=== PATIENT | male | born 1960 | race American Indian/Alaskan Native ===

== ENCOUNTER 2017-08-02 09:15 | Inpatient (IN) | payer MEDICARE ==
[2017-08-02 09:23] VITALS: BMI 37.2
[2017-08-02] MEDS ORDERED: EPINEPHrine 1 mg/ml (1:1000) Inj ONE (13:05)
[2017-08-02] MEDS ORDERED: Bacitracin Ointment 30 GM TUBE ONE (13:06)
[2017-08-02] MEDS ORDERED: Bupivacaine 0.5% Inj(30mL) ONE (13:06)
[2017-08-02] MEDS ORDERED: Absorbable Gelatin Sponge Size 100 ONE (13:06)
[2017-08-02] MEDS ORDERED: Thrombin Topical 5,000 IU Spray Kit ONE (13:06)
[2017-08-02] MEDS ORDERED: Morphine 1 mg/ml preservative-free Inj(Duramorph) ONE ×2 (13:39→14:40)
[2017-08-02] MEDS ORDERED: Propofol 10 mg/ml Inj (20 ML) ONE (13:49)
[2017-08-02] MEDS ORDERED: Midazolam 2 MG/2 ML VIAL ONE (13:49)
[2017-08-02] MEDS ORDERED: ePHEDrine 50 mg/ml Inj ONE (13:49)
[2017-08-02] MEDS ORDERED: Succinylcholine 200 mg/10 ml Inj IV ONE (13:50)
[2017-08-02] MEDS ORDERED: Rocuronium 10 mg/ml (5 ml) ONE (13:50)
[2017-08-02] MEDS ORDERED: Phenylephrine 10 mg/ml Inj ONE (13:50)
[2017-08-02] MEDS ORDERED: Lactated Ringer's 1,000 ML IV ONE ×3 (14:02→17:13)
[2017-08-02] MEDS ORDERED: Sodium Chloride 0.9% 1,000 ML IV ONE (14:20)
[2017-08-02] MEDS ORDERED: Desflurane Inhalation Anesthetic Liq (240 ml) ONE (16:29)
--- NOTE | 2017-08-02 17:20 | PCM.SURG1 ---
Surgeon's Initial Post Op Note - Surgeon's Notes Surgeon: Sg Alonzo MD [employer] Paralegal: Dillon Crawford PA-C Type of Anesthesia: General Endo Pre-Operative Diagnosis: Right hip severe osteoarthritis Operative Findings: see op report Post-Operative Diagnosis: same as pre-op dx Operation Performed: Right robotic assisted total hip replacement Specimen/Specimens Removed: right hip femoral head and soft tissue Estimated Blood Loss: EBL {In ML}: 200 Date of Surgery/Procedure: 08/02/17 Time of Surgery/Procedure: 15:00
[2017-08-02] MEDS ORDERED: HYDROmorphone 0.5 mg/0.5 ml ISec ONE (17:21)
[2017-08-02] MEDS: HYDROmorphone 0.5 mg/0.5 ml ISec IVP PRN ×4 (17:25→19:10)
[2017-08-02] MEDS ORDERED: Oxycodone/Acetaminophen 5/325 mg Tab PO PRN (17:28)
--- NOTE | 2017-08-02 18:56 | RAD ---
PROCEDURE: Pelvis right hip HISTORY: s/p RTHR COMPARISON: No prior studies. TECHNIQUE: Standard protocol for this study/examination. FINDINGS: Status post right JOLEEN. Unremarkable components of the prosthesis is visualized. No evidence of loosening. Negative study for subluxation or dislocation. Unremarkable pelvic ring and right hemipelvis osseous structures is visualized. IMPRESSION: No acute findings related to/accounting for the clinical presentation.
[2017-08-02] MEDS: oxyCODONE 20 mg ER Tab (oxyCONTIN) PO SCH (21:24)
[2017-08-02] MEDS ORDERED: ceFAZolin 1 GM in Sodium Chloride 0.9% 100 ML IVPB ONE (23:00)
[2017-08-03] MEDS ORDERED: ceFAZolin 1 GM in Sodium Chloride 0.9% 100 ML IVPB ONE (07:00)
[2017-08-03 07:11] LABS: BASO % 0.5 % (0.0-2.0); EOS # 0.3 K/uL (0.0-0.7); EOS % 3.9 % (0.0-4.0); HEMATOCRIT 33.9 % (35.0-51.0); LYMPH # 1.3 K/uL (1.0-4.3); LYMPH % 15.9 % (20.0-40.0); MEAN CELL VOLUME 89.2 fl (80.0-94.0); MEAN CORPUSCULAR HEMOGLOBIN 29.3 pg (27.0-31.0); MEAN CORPUSCULAR HGB CONC 32.9 g/dL (33.0-37.0); MEAN PLATELET VOLUME 8.7 fl (7.2-11.7); MONO # 0.8 K/uL (0.0-0.8); MONO % 10.1 % (0.0-10.0); NEUT # 5.5 K/uL (1.8-7.0); NEUT % 69.6 % (50.0-75.0); RED CELL DISTRIBUTION WIDTH 13.6 % (11.5-14.5); WHITE BLOOD COUNT 7.9 K/uL (4.8-10.8)
[2017-08-03 07:19] LABS: BLOOD UREA NITROGEN 12 mg/dl (9-20); CALCIUM 8.3 mg/dL (8.4-10.2); CARBON DIOXIDE 23 mmol/L (22-30); CHLORIDE 105 mmol/L (98-107); GFR AFRICAN-AMERICAN > 60; GLUCOSE,RANDOM 93 mg/dL (75-110); SODIUM 138 mmol/l (132-148)
--- NOTE | 2017-08-03 09:04 | CP.PCM.PN ---
Subjective - Date & Time of Evaluation Date of Evaluation: 08/03/17 Time of Evaluation: 08:15 - Subjective Subjective: S/P Right robotic assisted total hip replacement POD#1 Pt seen and examined sitting in chair, comfortable, NAD Pt c/o mild right hip pain Pt denies any SOB, chest pain, N/V/D, numbness/tingling RLE Objective - Vital Signs/Intake and Output Vital Signs (last 24 hours): Temp Pulse Resp BP Pulse Ox 99.4 F 74 20 167/83 H 97 08/03/17 08:03 08/03/17 08:03 08/03/17 08:03 08/03/17 08:03 08/03/17 08:03 - Medications Medications: Current Medications Acetaminophen (Tylenol 325mg Tab) 325 mg PO Q4 PRN PRN Reason: pain1-3 Amlodipine Besylate (Norvasc) 10 mg PO DAILY [facility] Aspirin (Aspirin) 325 mg PO BID [facility] Celecoxib (Celebrex) 200 mg PO Q12 [facility] Last Admin: 08/02/17 21:23 Dose: 200 mg Docusate Sodium (Colace) 100 mg PO TID [facility] Hydromorphone HCl (Dilaudid) 0.5 mg IVP Q5M PRN PRN Reason: Pain, moderate (4-7) Last Admin: 08/02/17 19:10 Dose: 0.5 mg Ketorolac Tromethamine (Toradol) 15 mg IM Q8 [facility] Stop: 08/05/17 01:00 Last Admin: 08/03/17 00:40 Dose: 15 mg Lactic Acid (Lac-Hydrin 12% Lotion (225 G)) 1 applic TOP TID PRN PRN Reason: Itching / Pruritus Metoprolol Tartrate (Lopressor) 50 mg PO Q12 [facility] Last Admin: 08/02/17 21:23 Dose: 50 mg Ondansetron HCl (Zofran Odt) 4 mg PO Q6 PRN PRN Reason: Nausea/Vomiting Oxycodone HCl (Oxycontin Extended Release Tab) 20 mg PO Q12 [facility] Stop: 08/16/17 23:59 Last Admin: 08/02/17 21:24 Dose: 20 mg Oxycodone/Acetaminophen (Percocet 5/325 Mg Tab) 1 tab PO Q4 PRN PRN Reason: pain4-6 Stop: 08/05/17 17:29 Pantoprazole Sodium (Protonix Ec Tab) 40 mg PO DAILY [facility] Valsartan (Diovan) 320 mg PO DAILY [facility] - Labs Labs: 08/03/17 06:15 08/03/17 06:15 - Constitutional Appears: Well, No Acute Distress - Respiratory Exam Respiratory Exam: Clear to Ausculation Bilateral, NORMAL BREATHING PATTERN - Cardiovascular Exam Cardiovascular Exam: REGULAR RHYTHM, RRR - Extremities Exam Additional comments: RLE: Hip dressing C/D/I Calves soft and nontender b/l N/V intact distally Normal ROM at ankle Distal pulses wnl Assessment and Plan - Assessment and Plan (Free Text) Assessment: 57 yo M s/p Right robotic assisted total hip replacement POD#1 Plan: 57 yo M s/p Right robotic assisted total hip replacement POD#1 Pain Control DVT ppx- aspirin 325mg bid PT/OT WBAT RLE Incentive Spirometer F/U labs Discussed with Dr. Alonzo
[2017-08-03] MEDS: oxyCODONE 20 mg ER Tab (oxyCONTIN) PO SCH ×2 (09:44→21:28)
[2017-08-03] MEDS: Pantoprazole 40 mg EC Tab PO SCH (09:47)
--- NOTE | 2017-08-03 20:02 | HP ---
HISTORY OF PRESENT ILLNESS: This is a 57 years old -[place] male with history of multiple medical problems who was admitted postoperative. The patient underwent right total hip replacement. The patient denied to have any shortness of breath. No chest pain. REVIEW OF SYSTEMS: Other review of systems is negative. ALLERGIES: NO KNOWN ALLERGIES. HOME MEDICATIONS: Mobic 15 mg daily, Exforge 10/320 once a day, metoprolol 50 mg twice a day, omeprazole 40 mg daily. PAST MEDICAL HISTORY: Hypertension, gastroesophageal reflux disease, osteoarthritis. SOCIAL HISTORY: No history of smoking, ETOH, or substance abuse. FAMILY HISTORY: Noncontributory. PHYSICAL EXAMINATION: GENERAL: The patient is in bed, comfortable, not in any cardiopulmonary distress. VITAL SIGNS: Blood pressure 167/83, temperature 99.4, respiratory rate 20, and pulse 74. HEENT: Pupils equal, reactive to light. Normal-appearing mucosa of the conjunctivae, oropharynx and nasal membrane mucosa. NECK: Supple. No JVD. No carotid bruit. No lymph node. No thyromegaly. CHEST AND LUNGS: Bilateral symmetrical expansion. Good air exchange. No rales, no rhonchi. CARDIOVASCULAR SYSTEM: PMI not localized. S1, S2. No additional sounds. ABDOMEN: Normoactive bowel sounds. No tenderness. No organomegaly. No masses. EXTREMITIES: No cyanosis, no clubbing, no edema. HATCHERY HELPER: Alert, awake, and oriented x2. No neurological deficit could be appreciated. ASSESSMENT: 1. Status post right total hip replacement. 2. Hypertension. 3. Osteoarthritis. Plan : Physical therapy , evaluation for TAMIKO , Resume patient's home medication. PLAN: Resume patient's home medications. Denise Dean MD [facility]
[2017-08-04 00:24] VITALS: RESP 20; O2SAT 98
[2017-08-04 05:51] LABS: BASO # 0.1 K/uL (0.0-0.2); BASO % 0.6 % (0.0-2.0); EOS # 0.4 K/uL (0.0-0.7); EOS % 4.7 % (0.0-4.0); HEMATOCRIT 30.7 % (35.0-51.0); LYMPH # 1.5 K/uL (1.0-4.3); LYMPH % 16.6 % (20.0-40.0); MEAN CELL VOLUME 88.1 fl (80.0-94.0); MEAN CORPUSCULAR HEMOGLOBIN 29.2 pg (27.0-31.0); MEAN CORPUSCULAR HGB CONC 33.1 g/dL (33.0-37.0); MONO # 0.9 K/uL (0.0-0.8); MONO % 10.2 % (0.0-10.0); NEUT % 67.9 % (50.0-75.0); RED CELL DISTRIBUTION WIDTH 13.4 % (11.5-14.5); WHITE BLOOD COUNT 8.8 K/uL (4.8-10.8)
[2017-08-04 05:57] LABS: BLOOD UREA NITROGEN 14 mg/dl (9-20); CALCIUM 8.1 mg/dL (8.4-10.2); CARBON DIOXIDE 21 mmol/L (22-30); CHLORIDE 105 mmol/L (98-107); GFR AFRICAN-AMERICAN > 60; GLUCOSE,RANDOM 97 mg/dL (75-110); POTASSIUM 3.8 MMOL/L (3.6-5.0); SODIUM 135 mmol/l (132-148)
[2017-08-04 08:05] VITALS: BP 120/70; PULSE 63; TEMP 98.3
[2017-08-04] MEDS: oxyCODONE 20 mg ER Tab (oxyCONTIN) PO SCH (09:22)
[2017-08-04] MEDS: Pantoprazole 40 mg EC Tab PO SCH (09:31)
--- NOTE | 2017-08-05 06:06 | DS ---
REASON FOR ADMISSION: This is a 57-year-old male who underwent right hip replacement and was admitted postoperatively. COURSE OF HOSPITALIZATION: The patient was admitted to medical floor and he was started on his home medications. The patient was started on physical therapy as per orthopedic recommendations. The patient did well and he was discharged to transitional care unit at the [facility] for physical therapy and occupational therapy as well as to continue his medications. FINAL DIAGNOSES: 1. Right total hip replacement. 2. Hypertension. 3. . [facility] MD Jermaine
--- NOTE | 2017-08-12 09:13 | OP ---
PROCEDURE DATE: 08/02/2017 PREOPERATIVE DIAGNOSIS: Right hip osteoarthritis. POSTOPERATIVE DIAGNOSIS: Right hip osteoarthritis. PROCEDURE: Right total hip replacement. IMPLANTS SIZE: Mirian 54 mm cup, size 4 stem with high offset, 36 mm head with -5 neck length, 25 mm screw. SURGEON: Sg Alonzo M.D. BRAIDING MACHINE TENDER: Dillon Crawford PA-C TYPE OF ANESTHESIA: General. ESTIMATED BLOOD LOSS: 200 mL. COMPLICATIONS: None. HISTORY: The patient with prolonged history of right hip pain progressively getting worse despite extensive conservative management, which included activity modification, injections, anti-inflammatory modification and physical therapy. X-rays had revealed advanced arthritis. Patient was indicated for total right hip replacement due to continued pain and limited mobility. I had a detailed discussion with the patient in the office explaining the nature of the surgery, alternatives of surgery, risks and benefits, rehabilitation protocol and surgical markings. Risks of surgery include but not limited to continued pain, lack of motion, infection, vascular injury, DVT / PE, nerve injury including peroneal nerve dysfunction, reflex sympathetic dystrophy, compartment syndrome, unforeseen medical and/or anesthesia complications, limb loss, and even . The patient expressed an understanding of the risks and possible benefits of the procedure, and is also aware of the alternatives to surgery. PROCEDURE: Sg Alonzo MD
--- NOTE | 2017-08-15 09:59 | OP ---
DATE OF OPERATION: 08/02/2017 PREOPERATIVE DIAGNOSIS: Right hip osteoarthritis. POSTOPERATIVE DIAGNOSIS: Right hip osteoarthritis. PROCEDURE: Right total hip replacement. IMPLANTS SIZE: [place] 54 mm cup, size 4 stem with high offset, 36 mm head with -5 neck length, 25 mm screw. SURGEON: Sg Alonzo MD COMPLEX CASE MANAGER: Dillon Crawford PA-C ANESTHESIA TYPE: General. ESTIMATED BLOOD LOSS: 200 mL. COMPLICATIONS: None. HISTORY: Patient with long standing history of right hip pain refractory of conservative management. X-ray had shown significant loss of joint space. After the failure of extensive conservative management, I had offered the patient the treatment option of total hip replacement. I reviewed the risk and benefits of the surgery with the patient in detail. The risks include, but not limited to bleeding, infection, nerve vessel damage, continuous pain, blood loss, instability, dislocation, iatrogenic fracture, blood clots, need for further surgery, and even . The patient fully understood the risks and benefits and opted to proceed. Patient underwent necessary preoperative medical workup and once medically cleared, was scheduled for the procedure. DESCRIPTION OF PROCEDURE: On the day of the surgery, the patient was admitted to preoperative holding area. A laterality sheet was completed, confirming correct operative site. An informed consent was signed from the patient and the correct operative hip was marked. Patient was brought into the operating room table. He underwent general anesthesia. Afterwards, the patient was placed on the operating room table in lateral decubitus position. All the bony prominences were well padded and an axillary roll was also placed. The hip was draped and prepped in the standard sterile manner. Timeout was completed, confirming correct operative site. We proceeded with Navigation assisted total hip replacement. Two pins were placed in the iliac crest to attach the antenna. Additional checkpoint was placed on the greater trochanter and on top of the acetabular roof. We utilized a standard postero-lateral approach. Using a #10 blade, a skin incision was made. The soft tissue dissection was taken down until the IT band fascia was identified incised along it's fibers. The short external rotators were exposed and excised with the capsule. It was tagged wit heavy sutures preserved for a later repair. Afterwards, the hip was dislocated and proposed neck cut was made. The Acetabulum was exposed using standard retractors. The remnant of torn labrum was excised along with pulvinar. The acetabulum was reamed using motorized reamers to the size that provide adequate depth and coverage. Next, 54 cup was securely fixed in to the acetabular socket in appropriate version and inclination. A polyethylene liner was secured in to the acetabular cup. The femoral canal was exposed using standard retractors. Using the box chisel, lateral femoral neck was removed. Femoral canal was broached up to size 4 broach, which provide a secure fit and adequate fill of femoral canal. A High-offset trial neck was secured onto the broach. Different trial heads with variable neck lengths were secured onto the trial neck. The hip was reduced and taken through extensive range of motion to test stability, soft tissue tensioning and leg length. It was noted the a 36 mm head with -5 neck length provide adequate stability, soft tissue tensioning and length. Next, size 4 stem with High-offset was securely fixed into the femoral canal. Then, 36 mm head with -5 neck length was secured onto the neck of femoral stem. Hip was reduced and taken through final range of motion to assess for stability, soft tissue tensioning and leg length which was found to be satisfactory. Finally, the wound was copiously irrigated using pulse lavage solution. All loose bodies were removed. The short external rotators were repaired to greater trochanter using drill holes and heavy sutures. IT band fascia was tightly closed using heavy sutures and rest the wound was closed standard manner. Sterile dressing was applied. Patient was transferred to stretcher. Post-op instructions included posterior hip precautions. During this procedure, I was assisted by Dillon Crawford PA-C, who assisted in positioning the patient on the operating room table as well as transferring the patient from the operating room table to the recovery room stretcher. In addition, Dillon Crawford PA-C, assisted me during the actual operative procedure by positioning, protecting critical neurovascular structures, exposure of the joint, and proper positioning of the implants. The presence of Dillon Crawford PA-C, as my operative assistant news director was medically necessary to ensure the utmost safety of the patient in the pre, intra-, and post-operative periods. Due to the patient's morbid obesity, this procedure was more difficult than a standard knee arthroscopy. This required extra time during prepping and draping, as well as an extended operative time. The length of the case was prolonged due to these factors by 50%. Sg Alonzo MD
== END 2017-08-04 16:18 | DRG 470 ==
LOC: H.OPSURG 09:15 → H.MEDSURG1 17:49 → H.OPSURG 19:40
PROVIDERS: ADMIT Internal Medicine; ATTEND Internal Medicine
PROC: 0SR90JZ Replacement of Right Hip Joint with Synthetic Substitute, Open Approach (ICD-10-PCS; principal; 2017-08-02 13:30)
DX: M16.11 Unilateral primary osteoarthritis, right hip (principal); I10 Essential (primary) hypertension; K21.9 Gastro-esophageal reflux disease without esophagitis; Z79.899 Other long term (current) drug therapy; M25.551 Pain in right hip

== ENCOUNTER 2017-08-04 13:30 | Inpatient (IN) | payer OTHER ==
[2017-08-04] MEDS: oxyCODONE 20 mg ER Tab (oxyCONTIN) PO SCH (20:51)
[2017-08-05] MEDS: Oxycodone/Acetaminophen 5/325 mg Tab PO PRN ×4 (02:08→17:30)
[2017-08-05] MEDS: oxyCODONE 20 mg ER Tab (oxyCONTIN) PO SCH ×2 (08:53→22:38)
--- NOTE | 2017-08-05 08:53 | CP.PCM.PN ---
Subjective - Date & Time of Evaluation Date of Evaluation: 08/05/17 Time of Evaluation: 08:00 - Subjective Subjective: S/P Right robotic assisted total hip replacement POD#3 Pt seen and examined at bedside, comfortable in bed Pt denies any right hip pain, well controlled with pain meds Pt denies any SOB, chest pain, N/V/D, numbness/tingling RLE Pt states he has had a BM Objective - Vital Signs/Intake and Output Vital Signs (last 24 hours): Temp Pulse Resp BP Pulse Ox 98.8 F 85 20 123/79 100 08/05/17 08:18 08/05/17 08:18 08/05/17 08:18 08/05/17 08:18 08/05/17 08:18 - Medications Medications: Current Medications Acetaminophen (Tylenol 325mg Tab) 325 mg PO Q4 PRN PRN Reason: Temperature Amlodipine Besylate (Norvasc) 10 mg PO DAILY [facility] Aspirin (Aspirin) 325 mg PO BID [facility] Last Admin: 08/04/17 19:00 Dose: 325 mg Celecoxib (Celebrex) 200 mg PO Q12 [facility] Last Admin: 08/04/17 21:09 Dose: 200 mg Docusate Sodium (Colace) 100 mg PO TID [facility] Lactic Acid (Lac-Hydrin 12% Lotion (225 G)) 1 applic TOP TID PRN PRN Reason: Itching / Pruritus Metoprolol Tartrate (Lopressor) 50 mg PO Q12 [facility] Last Admin: 08/04/17 20:52 Dose: 50 mg Oxycodone HCl (Oxycontin Extended Release Tab) 20 mg PO Q12 [facility] Last Admin: 08/04/17 20:51 Dose: 20 mg Oxycodone/Acetaminophen (Percocet 5/325 Mg Tab) 1 tab PO Q4 PRN PRN Reason: pain4-6 Stop: 08/07/17 17:41 Last Admin: 08/05/17 02:08 Dose: 1 tab Pantoprazole Sodium (Protonix Ec Tab) 40 mg PO DAILY [facility] Valsartan (Diovan) 320 mg PO DAILY [facility] - Constitutional Appears: Well, No Acute Distress - Respiratory Exam Respiratory Exam: Clear to Ausculation Bilateral, NORMAL BREATHING PATTERN - Cardiovascular Exam Cardiovascular Exam: REGULAR RHYTHM, RRR - Extremities Exam Additional comments: RLE: Hip dressing C/D/I Hip abduction pillow in place Calves soft and nontender b/l N/V intact distally Distal pulses wnl Assessment and Plan - Assessment and Plan (Free Text) Assessment: 57 M s/p Right robotic assisted total hip replacement POD#3 Plan: 57 M s/p Right robotic assisted total hip replacement POD#3 Pain Control DVT ppx PT/OT WBAT RLE Continue current management Discussed with Dr. Alonzo
[2017-08-05] MEDS: Pantoprazole 40 mg EC Tab PO SCH (08:54)
[2017-08-05 16:19] VITALS: RESP 20
[2017-08-05] MEDS ORDERED: Influenza Vaccine 18yr & older 0.5 ML/45 MCG SYR IM ONE (17:00)
--- NOTE | 2017-08-06 04:49 | HP ---
HISTORY OF PRESENT ILLNESS: This is a 57-year-old male with history of osteoarthritis, status post right total hip replacement was admitted to transitional care unit for physical therapy, occupational therapy postoperative. The patient denied to have any chest pain, shortness of breath, or palpitations. The patient was seen walking in the physical therapy and he did not have any specific complaints. REVIEW OF SYSTEMS: Other review of systems is negative. ALLERGIES: NO KNOWN ALLERGIES. MEDICATIONS: Aspirin 325 mg twice a day, Celebrex 200 mg every 12 hours, Colace 100 mg 3 times a day, Diovan 320 mg daily, lactulose 20 g every 4 hours p.r.n. for constipation, metoprolol 50 mg q. 12 hours, Norvasc 10 mg daily, and pantoprazole 40 mg daily. SOCIAL HISTORY: No history of smoking, EtOH, or substance abuse. FAMILY HISTORY: Not contributory. PHYSICAL EXAMINATION VITAL SIGNS: Blood pressure 113/71, temperature 96.6, respiratory rate 20, and pulse 64. HEENT: Pupils equal, reactive to light. Normal-appearing mucosa of the conjunctivae, oropharynx and nasal membrane mucosa. NECK: Supple. No JVD. No carotid bruit. No lymph node. No thyromegaly. CHEST AND LUNGS: Bilateral symmetrical expansion. Good air exchange. No rales, no rhonchi. CARDIOVASCULAR SYSTEM: PMI not localized. S1, S2. No additional sounds. ABDOMEN: Normoactive bowel sounds. No tenderness. No organomegaly. No masses. EXTREMITIES: No cyanosis, no clubbing, no edema. CENTRAL NERVOUS SYSTEM: Alert, awake, and oriented x2. No neurological deficit could be appreciated. ASSESSMENT: 1. Status posts right total hip replacement. 2. Hypertension. 3. Osteoarthritis. PLAN: Continue physical therapy and occupational therapy, continue aspirin 325 twice a day with PPI and follow orthopedic recommendations. Denise Dean MD
[2017-08-06] MEDS: Oxycodone/Acetaminophen 5/325 mg Tab PO PRN ×3 (07:47→19:52)
[2017-08-06] MEDS: oxyCODONE 20 mg ER Tab (oxyCONTIN) PO SCH ×2 (08:37→22:10)
[2017-08-06] MEDS: Pantoprazole 40 mg EC Tab PO SCH (08:37)
[2017-08-07] MEDS: oxyCODONE 20 mg ER Tab (oxyCONTIN) PO SCH ×2 (09:15→21:29)
[2017-08-07] MEDS: Pantoprazole 40 mg EC Tab PO SCH (09:15)
--- NOTE | 2017-08-07 11:17 | CP.PCM.CON ---
History of Present Illness - History of Present Illness History of Present Illness: patient with mild knee discomfort Review of Systems - Musculoskeletal Musculoskeletal: Abnormal Gait, Muscle Weakness Past Patient History - Past Medical History & Family History Past Medical History?: Yes - Past Social History Smoking Status: Former Smoker - CARDIAC Hx Hypercholesterolemia: Yes Hx Hypertension: Yes - PULMONARY Hx Respiratory Disorders: Yes Hx Bronchitis: Yes Other/Comment: SARCOIDOSIS OF LUNGS - NEUROLOGICAL Hx Neurological Disorder: No - HEENT Hx HEENT Problems: No Other/Comment: dry eyes using eye glass - RENAL Hx Chronic Kidney Disease: No - ENDOCRINE/METABOLIC Hx Endocrine Disorders: No - HEMATOLOGICAL/ONCOLOGICAL Hx Blood Disorders: No Hx AIDS: No Hx Blood Transfusions: Yes Hx Blood Transfusion Reaction: No Hx Human Immunodeficiency Virus (HIV): No - INTEGUMENTARY Hx Dermatological Problems: No - MUSCULOSKELETAL/RHEUMATOLOGICAL Hx Musculoskeletal Disorders: Yes Hx Arthritis: Yes Hx Back Pain: Yes Hx Falls: Yes Hx Herniated Disk: Yes (X2) - GASTROINTESTINAL Hx Gastrointestinal Disorders: Yes Hx Gastroesophageal Reflux: Yes Hx Pancreatitis: Yes - GENITOURINARY/GYNECOLOGICAL Hx Genitourinary Disorders: No - PSYCHIATRIC Hx Emotional Abuse: No Hx Physical Abuse: No Hx Substance Use: No - SURGICAL HISTORY Hx Surgeries: Yes Other/Comment: LEFT SHOULDER SURGERY;LEFT LEG TIBIA-FIBULA SURGERY-WITH JESS; BROCHOSCOPY;EPIDURALS;DISCOGRAM - ANESTHESIA Hx Anesthesia: Yes Hx Anesthesia Reactions: No Hx Malignant Hyperthermia: No Meds Allergies/Adverse Reactions: Allergies Allergy/AdvReac Type Severity Reaction Status Date / Time No Known Allergies Allergy Verified 08/04/17 15:23 - Medications Medications: Current Medications Acetaminophen (Tylenol 325mg Tab) 325 mg PO Q4 PRN PRN Reason: Temperature Amlodipine Besylate (Norvasc) 10 mg PO DAILY [facility] Last Admin: 08/07/17 09:15 Dose: 10 mg Aspirin (Aspirin) 325 mg PO BID [facility] Last Admin: 08/07/17 09:14 Dose: 325 mg Celecoxib (Celebrex) 200 mg PO Q12 [facility] Last Admin: 08/07/17 09:14 Dose: 200 mg Docusate Sodium (Colace) 100 mg PO TID [facility] Last Admin: 08/07/17 09:14 Dose: 100 mg Lactic Acid (Lac-Hydrin 12% Lotion (225 G)) 1 applic TOP TID PRN PRN Reason: Itching / Pruritus Lactulose (Enulose) 20 gm PO Q4 PRN PRN Reason: Constipation Last Admin: 08/06/17 08:36 Dose: 20 gm Metoprolol Tartrate (Lopressor) 50 mg PO Q12 [facility] Last Admin: 08/07/17 09:14 Dose: 50 mg Oxycodone HCl (Oxycontin Extended Release Tab) 20 mg PO Q12 [facility] Last Admin: 08/07/17 09:15 Dose: 20 mg Oxycodone/Acetaminophen (Percocet 5/325 Mg Tab) 1 tab PO Q4 PRN PRN Reason: pain4-6 Stop: 08/07/17 17:41 Last Admin: 08/06/17 19:52 Dose: 1 tab Pantoprazole Sodium (Protonix Ec Tab) 40 mg PO DAILY [facility] Last Admin: 08/07/17 09:15 Dose: 40 mg Valsartan (Diovan) 320 mg PO DAILY [facility] Last Admin: 08/07/17 09:14 Dose: 320 mg Physical Exam - Head Exam Head Exam: ATRAUMATIC, NORMAL INSPECTION, NORMOCEPHALIC - Eye Exam Eye Exam: EOMI, Normal appearance Pupil Exam: NORMAL ACCOMODATION, PERRL - ENT Exam ENT Exam: Mucous Membranes Moist - Neck Exam Neck exam: Positive for: Normal Inspection - Respiratory Exam Respiratory Exam: NORMAL BREATHING PATTERN - Cardiovascular Exam Cardiovascular Exam: REGULAR RHYTHM - GI/Abdominal Exam GI & Abdominal Exam: Normal Bowel Sounds - Rectal Exam Rectal Exam: NORMAL INSPECTION - Exam Exam: NORMAL INSPECTION External exam: NORMAL EXTERNAL EXAM - Extremities Exam Extremities exam: Positive for: normal inspection Additional comments: muscle strength 3/5 in the leg the other extremeties with in normal limits - Back Exam Back exam: NORMAL INSPECTION - Neurological Exam Neurological exam: Alert, CN II-XII Intact - Psychiatric Exam Psychiatric exam: Normal Affect, Normal Mood - Skin Skin Exam: Normal Color Results - Vital Signs Recent Vital Signs: Last Vital Signs Temp 97.2 F L 08/07/17 09:51 Pulse 70 08/07/17 09:51 Resp 20 08/07/17 09:51 BP 124/78 08/07/17 09:51 Pulse Ox 98 08/07/17 09:51 Assessment & Plan (1) Abdominal colic Status: Acute (2) Diarrhea Status: Acute (3) Nausea Status: Acute (4) Vomiting Status: Acute - Assessment and Plan (Free Text) Assessment: status post surgery as Per Dr Alonzo, Leg is healing Plan for physical, occupational and rec therapy monitor pain covering for Dr Henry
[2017-08-07] MEDS: Oxycodone/Acetaminophen 5/325 mg Tab PO PRN (11:19)
[2017-08-08] MEDS: Oxycodone/Acetaminophen 5/325 mg Tab PO PRN ×4 (00:27→17:23)
[2017-08-08 06:59] LABS: HEMATOCRIT 29.9 % (35.0-51.0); MEAN CELL VOLUME 88.5 fl (80.0-94.0); MEAN CORPUSCULAR HEMOGLOBIN 29.3 pg (27.0-31.0); MEAN CORPUSCULAR HGB CONC 33.1 g/dL (33.0-37.0); RED CELL DISTRIBUTION WIDTH 13.2 % (11.5-14.5); WHITE BLOOD COUNT 6.5 K/uL (4.8-10.8)
[2017-08-08 07:04] LABS: ALB/GLOB RATIO 1.1 (1.0-2.1); ALKALINE PHOSPHATASE 69 U/L (38-126); ALT/SGPT 21 U/L (21-72); AST/SGOT 31 U/L (17-59); BILIRUBIN,TOTAL 0.6 mg/dl (0.2-1.3); BLOOD UREA NITROGEN 13 mg/dl (9-20); CALCIUM 9.2 mg/dL (8.4-10.2); CARBON DIOXIDE 29 mmol/L (22-30); CHLORIDE 103 mmol/L (98-107); GFR AFRICAN-AMERICAN > 60; GLUCOSE,RANDOM 94 mg/dL (75-110); POTASSIUM 4.7 MMOL/L (3.6-5.0); SODIUM 139 mmol/l (132-148); TOTAL PROTEIN 6.6 G/DL (6.3-8.2)
[2017-08-08] MEDS: oxyCODONE 20 mg ER Tab (oxyCONTIN) PO SCH ×2 (08:23→21:04)
[2017-08-08] MEDS: Pantoprazole 40 mg EC Tab PO SCH (08:23)
--- NOTE | 2017-08-08 08:28 | PN ---
DATE: 08/06/2017 SUBJECTIVE: The patient is seen today, 08/06/2017. He is not in any cardiopulmonary distress and the patient is cooperative with physical therapy. PHYSICAL EXAMINATION: VITAL SIGNS: Blood pressure is 114/69, temperature 97.6, respiratory rate 20, and pulse 63. HEENT: Pupils are equal and reactive to light. Normal-appearing mucosa of the conjunctivae, oropharynx and nasal membrane mucosa. NECK: Supple. No JVD. No carotid bruit. No lymph node. No thyromegaly. CHEST AND LUNGS: Bilateral symmetrical expansion. Good air exchange. No rales, no rhonchi. CARDIOVASCULAR SYSTEM: PMI not localized. S1 and S2. No additional sounds. ABDOMEN: Normoactive bowel sounds. No tenderness. No organomegaly. No masses. EXTREMITIES: No cyanosis. No clubbing. No edema. CENTRAL NERVOUS SYSTEM: Alert, awake and oriented x3 and no neurological deficits could be appreciated. ASSESSMENT: 1. Subacute rehabilitation. 2. Status post right total hip replacement. 3. Hypertension. 4. Osteoarthritis. PLAN: Continue current pain medications and continue aspirin 325 mg twice a day and follow orthopedic recommendations. Denise Dean MD
--- NOTE | 2017-08-08 08:42 | CON ---
DATE: PODIATRY CONSULTATION HISTORY OF PRESENT ILLNESS: A 57-year-old black male admitted for transitional care unit for inpatient rehab. The patient with right hip robotic surgery by Dr. Alonzo. No acute complaints at present. Claims he was limping previously at home, had difficulty in transfers and ambulation for the patient. SOCIAL HISTORY: No history of drinking. No history of smoking. FAMILY HISTORY: Noncontributory. MEDICATIONS: As per medical physician. PAST SURGICAL HISTORY: Left shoulder surgery, left leg tibia fibula surgery with placement of the micaela and epidurals for the patient as well. FUNCTIONAL STATUS: The patient needed some assistance at home especially since the pain of the hip. Other systems are negative. REVIEW OF SYSTEMS: The patient with right leg weakness with dressing in place. PHYSICAL EXAMINATION VITAL SIGNS: Vitals are stable. NECK: Supple. CHEST: Symmetrical. HEART: Sounds S1 and S2. ABDOMEN: Benign. EXTREMITIES: No clubbing, cyanosis, or edema. NEUROLOGIC: The patient is alert, able to follow commands. Cranial nerves II through XII intact. Motor: Both upper and left lower extremity, tone normal range of motion as functional. Muscle strength is good. The right lower extremity: Tone normal, range of motion is functional, and muscle strength is 3. Sensation to pinprick and light touch intact. Deep tendon reflexes 2+ bilaterally. Other systems are negative. IMPRESSION: Right hip replacement, gait difficulty, deconditioning, and generalized weakness. The patient at present for transitional care unit. The patient for physical and occupational therapy for range of motion strengthening, transfers, ambulation and gait training. Goals are for modified independence. PLAN: Discharged home with supportive services. Davis Topete MD
--- NOTE | 2017-08-09 00:57 | PN ---
DATE: 08/08/2017 SUBJECTIVE: He is not in any cardiopulmonary distress. The patient just finished physical therapy at the time of this physical exam. PHYSICAL EXAMINATION VITAL SIGNS: Blood pressure 133/84, temperature 98.6, respiratory rate 20 and pulse 68. HEENT: Pupil equal and reactive to light. Normal-appearing mucosa, conjunctivae, oral pharynx and nasal membrane mucosa. NECK: Supple. No JVD. No carotid bruit. No lymph node. No thyromegaly. CHEST AND LUNGS: Bilateral symmetric expansion. Good air exchange. No rales, no rhonchi. CARDIOVASCULAR SYSTEM: PMI not localized. S1 and S2. No additional sounds. ABDOMEN: Normal active bowel sounds. No tenderness. No organomegaly, no masses. EXTREMITIES: No cyanosis, no clubbing, no edema. CRIMINAL ATTORNEY: Alert, awake, oriented x2. No neurological deficits could be appreciated. ASSESSMENT: 1. Status post right total hip replacement. 2. Hypertension. 3. Osteoarthritis. PLAN: Continue current medications and management and physical therapy and aspirin 325 mg twice a day for DVT prophylaxis. Denise Dean MD
[2017-08-09] MEDS: Oxycodone/Acetaminophen 5/325 mg Tab PO PRN ×3 (03:22→16:20)
[2017-08-09] MEDS: Pantoprazole 40 mg EC Tab PO SCH (08:22)
[2017-08-09] MEDS: oxyCODONE 20 mg ER Tab (oxyCONTIN) PO SCH ×2 (08:23→20:26)
[2017-08-09 17:39] LABS: BASO # 0.1 K/uL (0.0-0.2); EOS # 0.5 K/uL (0.0-0.7); EOS % 7.9 % (0.0-4.0); HEMATOCRIT 31.4 % (35.0-51.0); LYMPH # 1.4 K/uL (1.0-4.3); LYMPH % 20.6 % (20.0-40.0); MEAN CELL VOLUME 88.6 fl (80.0-94.0); MEAN CORPUSCULAR HGB CONC 32.7 g/dL (33.0-37.0); MEAN PLATELET VOLUME 7.5 fl (7.2-11.7); MONO # 0.6 K/uL (0.0-0.8); MONO % 8.8 % (0.0-10.0); NEUT # 4.3 K/uL (1.8-7.0); NEUT % 61.7 % (50.0-75.0); NRBC % 0.1 % (0.0-0.0); RED CELL DISTRIBUTION WIDTH 13.1 % (11.5-14.5); WHITE BLOOD COUNT 6.9 K/uL (4.8-10.8)
--- NOTE | 2017-08-09 21:03 | CP.PCM.PN ---
Subjective - Date & Time of Evaluation Date of Evaluation: 08/09/17 Time of Evaluation: 11:30 - Subjective Subjective: patinet with complaints of right leg swelling Objective - Vital Signs/Intake and Output Vital Signs (last 24 hours): Temp Pulse Resp BP Pulse Ox 97.3 F L 72 20 161/78 H 98 08/09/17 17:22 08/09/17 20:25 08/09/17 17:22 08/09/17 20:25 08/09/17 17:22 - Medications Medications: Current Medications Acetaminophen (Tylenol 325mg Tab) 325 mg PO Q4 PRN PRN Reason: Temperature Amlodipine Besylate (Norvasc) 10 mg PO DAILY [facility] Last Admin: 08/09/17 08:23 Dose: 10 mg Aspirin (Aspirin) 325 mg PO BID [facility] Last Admin: 08/09/17 16:27 Dose: 325 mg Celecoxib (Celebrex) 200 mg PO Q12 [facility] Last Admin: 08/09/17 20:25 Dose: 200 mg Docusate Sodium (Colace) 100 mg PO TID [facility] Last Admin: 08/09/17 16:21 Dose: 100 mg Vancomycin HCl 1 gm/ Sodium (Chloride) 250 mls @ 166.667 mls/hr IVPB Q12 [facility] Last Admin: 08/09/17 20:26 Dose: 166.667 mls/hr Lactic Acid (Lac-Hydrin 12% Lotion (225 G)) 1 applic TOP TID PRN PRN Reason: Itching / Pruritus Lactulose (Enulose) 20 gm PO Q4 PRN PRN Reason: Constipation Last Admin: 08/06/17 08:36 Dose: 20 gm Metoprolol Tartrate (Lopressor) 50 mg PO Q12 [facility] Last Admin: 08/09/17 20:25 Dose: 50 mg Oxycodone HCl (Oxycontin Extended Release Tab) 20 mg PO Q12 [facility] Last Admin: 08/09/17 20:26 Dose: 20 mg Oxycodone/Acetaminophen (Percocet 5/325 Mg Tab) 1 tab PO Q4 PRN PRN Reason: Pain, severe (8-10) Stop: 08/10/17 19:27 Last Admin: 08/09/17 16:20 Dose: 1 tab Pantoprazole Sodium (Protonix Ec Tab) 40 mg PO DAILY [facility] Last Admin: 08/09/17 08:22 Dose: 40 mg Valsartan (Diovan) 320 mg PO DAILY [facility] Last Admin: 08/09/17 08:22 Dose: 320 mg - Labs Labs: 08/09/17 17:20 08/08/17 06:48 - Head Exam Head Exam: ATRAUMATIC, NORMAL INSPECTION, NORMOCEPHALIC - Eye Exam Eye Exam: EOMI, Normal appearance Pupil Exam: NORMAL ACCOMODATION, PERRL - ENT Exam ENT Exam: Mucous Membranes Moist - Neck Exam Neck Exam: Normal Inspection - Respiratory Exam Respiratory Exam: Clear to Ausculation Bilateral, NORMAL BREATHING PATTERN - Cardiovascular Exam Cardiovascular Exam: REGULAR RHYTHM - GI/Abdominal Exam GI & Abdominal Exam: Soft, Normal Bowel Sounds - Exam External exam: NORMAL EXTERNAL EXAM - Extremities Exam Extremities Exam: Full ROM - Back Exam Back Exam: NORMAL INSPECTION - Neurological Exam Neurological Exam: Alert, Awake Neuro motor strength exam: Left Upper Extremity: 4, Right Upper Extremity: 4, Left Lower Extremity: 4, Right Lower Extremity: 2/1 - Psychiatric Exam Psychiatric exam: Normal Affect, Normal Mood - Skin Skin Exam: Normal Color Assessment and Plan (1) Abdominal colic Status: Acute (2) Diarrhea Status: Acute (3) Nausea Status: Acute (4) Vomiting Status: Acute - Assessment and Plan (Free Text) Assessment: right hip surgery, Duplex scan rule out DVT ( status post swelling)
[2017-08-10] MEDS: Pantoprazole 40 mg EC Tab PO SCH (09:06)
[2017-08-10] MEDS: oxyCODONE 20 mg ER Tab (oxyCONTIN) PO SCH ×2 (09:08→21:43)
[2017-08-10] MEDS: Oxycodone/Acetaminophen 5/325 mg Tab PO PRN ×2 (12:33→17:33)
--- NOTE | 2017-08-10 20:30 | PN ---
DATE: 08/10/2017 SUBJECTIVE: The patient is seen today on 08/10/2017. He is not in any cardiopulmonary distress. PHYSICAL EXAMINATION: VITAL SIGNS: Blood pressure 123/70, temperature 97.7, respiratory rate 20 and pulse 65. HEENT: Pupil equal and reactive to light. Normal-appearing mucosa, conjunctivae, oral pharynx and nasal membrane mucosa. NECK: Supple. No JVD. No carotid bruit. No lymph node. No thyromegaly. CHEST AND LUNGS: Bilateral symmetric expansion. Good air exchange. No rales, no rhonchi. CARDIOVASCULAR SYSTEM: PMI not localized. S1 and S2. No additional sounds. ABDOMEN: Normal active bowel sounds. No tenderness. No organomegaly, no masses. EXTREMITIES: No cyanosis, no clubbing. There is edema of the right lower extremity. The patient had pain yesterday and ultrasound ruled out DVT, but showed some fluids under the skin suggestive of cellulitis. DEAF TEACHER: Alert, awake, oriented x3. No neurological deficits could be appreciated. ASSESSMENT: 1. Cellulitis of the right lower extremity. 2. Status post right total hip replacement. 3. Hypertension. 4. Osteoarthritis. PLAN: Continue vancomycin that was started yesterday and we will check vancomycin trough and monitor CMP and chemistry. Denise Dean MD
--- NOTE | 2017-08-10 20:41 | CP.PCM.PN ---
Subjective - Date & Time of Evaluation Date of Evaluation: 08/10/17 Time of Evaluation: 13:00 - Subjective Subjective: patient with complaints of less swelling in the leg Objective - Vital Signs/Intake and Output Vital Signs (last 24 hours): Temp Pulse Resp BP Pulse Ox 97.9 F 65 20 128/76 98 08/10/17 20:22 08/10/17 20:22 08/10/17 20:22 08/10/17 20:22 08/10/17 20:22 - Medications Medications: Current Medications Acetaminophen (Tylenol 325mg Tab) 325 mg PO Q4 PRN PRN Reason: Temperature Amlodipine Besylate (Norvasc) 10 mg PO DAILY [facility] Last Admin: 08/10/17 09:07 Dose: 10 mg Aspirin (Aspirin) 325 mg PO BID [facility] Last Admin: 08/10/17 17:18 Dose: 325 mg Celecoxib (Celebrex) 200 mg PO Q12 [facility] Last Admin: 08/10/17 09:07 Dose: 200 mg Docusate Sodium (Colace) 100 mg PO TID [facility] Last Admin: 08/10/17 17:18 Dose: 100 mg Vancomycin HCl 1 gm/ Sodium (Chloride) 250 mls @ 166.667 mls/hr IVPB Q12@1100, 2300 [facility] Lactic Acid (Lac-Hydrin 12% Lotion (225 G)) 1 applic TOP TID PRN PRN Reason: Itching / Pruritus Lactulose (Enulose) 20 gm PO Q4 PRN PRN Reason: Constipation Last Admin: 08/06/17 08:36 Dose: 20 gm Metoprolol Tartrate (Lopressor) 50 mg PO Q12 [facility] Last Admin: 08/10/17 09:06 Dose: 50 mg Oxycodone HCl (Oxycontin Extended Release Tab) 20 mg PO Q12 [facility] Last Admin: 08/10/17 09:08 Dose: 20 mg Pantoprazole Sodium (Protonix Ec Tab) 40 mg PO DAILY [facility] Last Admin: 08/10/17 09:06 Dose: 40 mg Valsartan (Diovan) 320 mg PO DAILY [facility] Last Admin: 08/10/17 09:07 Dose: 320 mg - Labs Labs: 08/09/17 17:20 08/08/17 06:48 - Eye Exam Eye Exam: Normal appearance Pupil Exam: NORMAL ACCOMODATION - ENT Exam ENT Exam: Normal Exam - Neck Exam Neck Exam: Full ROM - Respiratory Exam Respiratory Exam: NORMAL BREATHING PATTERN - Cardiovascular Exam Cardiovascular Exam: REGULAR RHYTHM - GI/Abdominal Exam GI & Abdominal Exam: Normal Bowel Sounds - Exam External exam: NORMAL EXTERNAL EXAM - Extremities Exam Extremities Exam: Full ROM, Normal Inspection - Back Exam Back Exam: NORMAL INSPECTION - Neurological Exam Neurological Exam: Alert, Awake Neuro motor strength exam: Left Upper Extremity: 4, Right Upper Extremity: 4, Left Lower Extremity: 4, Right Lower Extremity: 3 - Skin Skin Exam: Normal Color Assessment and Plan (1) Abdominal colic Status: Acute (2) Diarrhea Status: Acute (3) Nausea Status: Acute (4) Vomiting Status: Acute - Assessment and Plan (Free Text) Assessment: right hip surgery status post duplex venous scan Pt ot therapy program
[2017-08-11] MEDS: Oxycodone/Acetaminophen 5/325 mg Tab PO PRN ×5 (01:59→22:30)
[2017-08-11] MEDS: oxyCODONE 20 mg ER Tab (oxyCONTIN) PO SCH ×2 (09:07→20:31)
[2017-08-11] MEDS: Pantoprazole 40 mg EC Tab PO SCH (09:07)
[2017-08-11 21:32] LABS: ALB/GLOB RATIO 1.1 (1.0-2.1); ALKALINE PHOSPHATASE 71 U/L (38-126); ALT/SGPT 25 U/L (21-72); AST/SGOT 26 U/L (17-59); BILIRUBIN,TOTAL 0.5 mg/dl (0.2-1.3); BLOOD UREA NITROGEN 13 mg/dl (9-20); CALCIUM 8.9 mg/dL (8.4-10.2); CARBON DIOXIDE 27 mmol/L (22-30); CHLORIDE 103 mmol/L (98-107); GFR AFRICAN-AMERICAN > 60; GLUCOSE,RANDOM 120 mg/dL (75-110); POTASSIUM 4.1 MMOL/L (3.6-5.0); SODIUM 137 mmol/l (132-148); TOTAL PROTEIN 6.6 G/DL (6.3-8.2)
[2017-08-12] MEDS: Pantoprazole 40 mg EC Tab PO SCH (08:31)
[2017-08-12] MEDS: oxyCODONE 20 mg ER Tab (oxyCONTIN) PO SCH (08:31)
[2017-08-12] MEDS: Oxycodone/Acetaminophen 5/325 mg Tab PO PRN ×2 (10:54→17:21)
--- NOTE | 2017-08-12 16:49 | CP.PCM.PN ---
Subjective - Date & Time of Evaluation Date of Evaluation: 08/12/17 Time of Evaluation: 08:45 - Subjective Subjective: S/P right robotic assisted THR Pt seen and examined at bedside, comfortable in bed Pt c/o mild right hip pain and RLE swelling Pt denies any SOB, chest pain, N/V/D, fever/chills, numbness/tingling RLE Objective - Vital Signs/Intake and Output Vital Signs (last 24 hours): Temp Pulse Resp BP Pulse Ox 97.9 F 61 20 118/62 98 08/12/17 16:00 08/12/17 16:00 08/12/17 16:00 08/12/17 16:00 08/12/17 16:00 - Medications Medications: Current Medications Acetaminophen (Tylenol 325mg Tab) 325 mg PO Q4 PRN PRN Reason: Temperature Amlodipine Besylate (Norvasc) 10 mg PO DAILY [facility] Last Admin: 08/12/17 08:32 Dose: 10 mg Aspirin (Aspirin) 325 mg PO BID [facility] Last Admin: 08/12/17 08:31 Dose: 325 mg Celecoxib (Celebrex) 200 mg PO Q12 [facility] Last Admin: 08/12/17 08:31 Dose: 200 mg Docusate Sodium (Colace) 100 mg PO TID [facility] Last Admin: 08/12/17 12:01 Dose: 100 mg Lactic Acid (Lac-Hydrin 12% Lotion (225 G)) 1 applic TOP TID PRN PRN Reason: Itching / Pruritus Lactulose (Enulose) 20 gm PO Q4 PRN PRN Reason: Constipation Last Admin: 08/06/17 08:36 Dose: 20 gm Metoprolol Tartrate (Lopressor) 50 mg PO Q12 [facility] Last Admin: 08/12/17 08:32 Dose: 50 mg Oxycodone HCl (Oxycontin Extended Release Tab) 20 mg PO Q12 [facility] Last Admin: 08/12/17 08:31 Dose: 20 mg Oxycodone/Acetaminophen (Percocet 5/325 Mg Tab) 1 tab PO Q4 PRN PRN Reason: Pain, severe (8-10) Stop: 08/14/17 01:58 Last Admin: 08/12/17 10:54 Dose: 1 tab Pantoprazole Sodium (Protonix Ec Tab) 40 mg PO DAILY [facility] Last Admin: 08/12/17 08:31 Dose: 40 mg Valsartan (Diovan) 320 mg PO DAILY [facility] Last Admin: 08/12/17 08:31 Dose: 320 mg - Labs Labs: 08/09/17 17:20 08/11/17 21:10 - Constitutional Appears: Well, No Acute Distress - Respiratory Exam Respiratory Exam: Clear to Ausculation Bilateral, NORMAL BREATHING PATTERN - Cardiovascular Exam Cardiovascular Exam: REGULAR RHYTHM, RRR - Extremities Exam Additional comments: RLE: Hip wound C/D/I Calves soft and nontender b/l +swelling right thigh and calf, no erythema N/V intact distally Distal pules wnl Assessment and Plan - Assessment and Plan (Free Text) Assessment: 57 yo M s/p right robotic assisted THR Plan: Pain Control DVT ppx No cellulitis notes RLE/calf, D/c IV abx Discharge planning pending PT clearance
--- NOTE | 2017-08-12 18:06 | PN ---
DATE: PhysiatRY PROGRESS NOTE SUBJECTIVE: The patient is feeling fine. No complaint of any hip pain. PHYSICAL EXAMINATION VITAL SIGNS: Stable. NECK: Supple. LUNGS: Symmetrical. HEART: Sounds S1 and S2. ABDOMEN: Benign. EXTREMITIES: No clubbing, cyanosis or edema. IMPRESSION: Right hip replacement, arthritis, gait difficulty, deconditioning. PLAN: Physical and occupational therapy. Patient for discharge on possibly Tuesday and recommend initially home therapy followed by outpatient therapy and to further evaluate patient's equipment. Davis Topete MD MTDD
[2017-08-13] MEDS: Oxycodone/Acetaminophen 5/325 mg Tab PO PRN ×3 (03:57→17:25)
[2017-08-13] MEDS: Pantoprazole 40 mg EC Tab PO SCH (10:06)
--- NOTE | 2017-08-13 15:21 | PN ---
SUBJECTIVE: The patient was seen, 08/12/2017. He was not in any cardiopulmonary distress. The patient was cooperative to both physical therapy and occupational therapy. PHYSICAL EXAMINATION: VITAL SIGNS: Blood pressure was 148/79, temperature 97.5, respiratory rate 20, and pulse 61. HEENT: Pupil equal and reactive to light. Normal-appearing mucosa, conjunctivae, oral pharynx and nasal membrane mucosa. NECK: Supple. No JVD. No carotid bruit. No lymph node. No thyromegaly. CHEST AND LUNGS: Bilateral symmetrical expansion. Good air exchange. No rales. No rhonchi. CARDIOVASCULAR SYSTEM: PMI not localized. S1 and S2. No additional sounds. ABDOMEN: Normoactive bowel sounds. No tenderness. No organomegaly. No masses. EXTREMITIES: No cyanosis. No clubbing. There is edema of the right lower extremity at the site of the surgery. CENTRAL NERVOUS SYSTEM: Alert, awake, and oriented x3. No neurological difficulty appreciated. ASSESSMENT: Status post right total hip replacement, hypertension, osteoarthritis, status post cellulitis of the right lower extremity, which resolved after 5 days on vancomycin. PLAN: Continue current management and follow orthopedic and physical therapy recommendations. Denise Dean MD
[2017-08-13] MEDS: oxyCODONE 20 mg ER Tab (oxyCONTIN) PO SCH (21:59)
[2017-08-14] MEDS: Oxycodone/Acetaminophen 5/325 mg Tab PO PRN ×2 (05:24→13:49)
[2017-08-14 08:15] LABS: BASO # 0.1 K/uL (0.0-0.2); EOS # 0.4 K/uL (0.0-0.7); EOS % 6.5 % (0.0-4.0); HEMATOCRIT 31.5 % (35.0-51.0); LYMPH # 1.4 K/uL (1.0-4.3); LYMPH % 20.6 % (20.0-40.0); MEAN CELL VOLUME 87.9 fl (80.0-94.0); MEAN CORPUSCULAR HEMOGLOBIN 28.6 pg (27.0-31.0); MEAN CORPUSCULAR HGB CONC 32.5 g/dL (33.0-37.0); MEAN PLATELET VOLUME 7.7 fl (7.2-11.7); MONO # 0.6 K/uL (0.0-0.8); MONO % 8.3 % (0.0-10.0); NEUT # 4.4 K/uL (1.8-7.0); NEUT % 63.6 % (50.0-75.0); RED CELL DISTRIBUTION WIDTH 13.1 % (11.5-14.5); WHITE BLOOD COUNT 6.9 K/uL (4.8-10.8)
[2017-08-14 08:30] LABS: ALB/GLOB RATIO 1.3 (1.0-2.1); ALKALINE PHOSPHATASE 74 U/L (38-126); ALT/SGPT 21 U/L (21-72); AST/SGOT 34 U/L (17-59); BILIRUBIN,TOTAL 0.5 mg/dl (0.2-1.3); BLOOD UREA NITROGEN 12 mg/dl (9-20); CALCIUM 9.3 mg/dL (8.4-10.2); CARBON DIOXIDE 29 mmol/L (22-30); CHLORIDE 102 mmol/L (98-107); GFR AFRICAN-AMERICAN > 60; GLUCOSE,RANDOM 87 mg/dL (75-110); POTASSIUM 4.1 MMOL/L (3.6-5.0); SODIUM 142 mmol/l (132-148); TOTAL PROTEIN 6.9 G/DL (6.3-8.2)
[2017-08-14] MEDS: Pantoprazole 40 mg EC Tab PO SCH (09:22)
[2017-08-14] MEDS: oxyCODONE 20 mg ER Tab (oxyCONTIN) PO SCH ×2 (09:23→20:37)
--- NOTE | 2017-08-15 02:53 | PN ---
DATE: 08/14/2017 SUBJECTIVE: He is not in any cardiopulmonary distress. PHYSICAL EXAMINATION VITAL SIGNS: Blood pressure 125/78, temperature 97.5, respiratory rate 20, and pulse 64. HEENT: Pupils equal, reactive to light. Normal-appearing mucosa, the conjunctivae, oropharyngeal nasal membrane mucosa. NECK: Supple. No JVD. No carotid bruit. No lymph nodes. No thyromegaly. CHEST AND LUNG: Bilateral symmetrical expansion. Good air exchange. No rales, no rhonchi. CARDIOVASCULAR SYSTEMS: PMI not localized. S1 and S2. No additional sounds. ABDOMEN: Normal active bowel sounds. No tenderness. No organomegaly, no masses. EXTREMITIES: No cyanosis, no clubbing, no edema. [employer]: Alert, awake and oriented x2. No neurological deficits could be appreciated. ASSESSMENT: 1. Status post right total hip replacement. 2. Hypertension. 3. Osteoarthritis. 4. Status post cellulitis of the right lower extremity. PLAN: Continue current medications and aspirin 325 mg twice a day for DVT prophylaxis. Follow with orthopedic recommendations. Denise Dean MD
[2017-08-15] MEDS: oxyCODONE 20 mg ER Tab (oxyCONTIN) PO SCH ×2 (08:13→20:24)
[2017-08-15] MEDS: Pantoprazole 40 mg EC Tab PO SCH (08:16)
[2017-08-15] MEDS: Oxycodone/Acetaminophen 5/325 mg Tab PO PRN ×2 (12:21→16:45)
[2017-08-16] MEDS: oxyCODONE 20 mg ER Tab (oxyCONTIN) PO SCH ×2 (08:12→21:02)
[2017-08-16] MEDS: Pantoprazole 40 mg EC Tab PO SCH (08:14)
[2017-08-16] MEDS: Oxycodone/Acetaminophen 5/325 mg Tab PO PRN ×2 (12:28→17:33)
--- NOTE | 2017-08-16 16:37 | US ---
PROCEDURE: Right lower extremity venous duplex Doppler. HISTORY: DUDLEY LEG PAIN COMPARISON: None available. TECHNIQUE: Common femoral, superficial femoral, popliteal and posterior tibial veins were evaluated. Flow was assessed with color Doppler, compressibility, assessment of phasic flow and augmentation response. FINDINGS: COMMON FEMORAL VEIN: Unremarkable. SUPERFICIAL FEMORAL VEIN: Unremarkable. POPLITEAL VEIN: Unremarkable. POSTERIOR TIBIAL VEIN: Unremarkable. OTHER FINDINGS: None. IMPRESSION: No evidence of deep venous thrombosis in the right lower extremity.
--- NOTE | 2017-08-16 23:56 | PN ---
DAILY PROGRESS NOTE DATE: 08/16/2017 SUBJECTIVE: The patient is seen today, 08/16/2017. He is not in any cardiopulmonary distress. The patient has swelling of both of his lower extremities with some redness on the right lower extremity. PHYSICAL EXAMINATION: VITAL SIGNS: Blood pressure is 126/58, temperature 98.4, respiratory rate 20, and pulse 62. HEENT: Pupils are equal and reactive to light. Normal-appearing mucosa of the conjunctivae, oropharynx, and nasal membrane mucosa. NECK: Supple. No JVD. No carotid bruits. No lymph node. No thyromegaly. CHEST AND LUNGS: Bilateral symmetrical expansion. Good air exchange. No rales. No rhonchi. CARDIOVASCULAR SYSTEM: PMI not localized. S1 and S2. No additional sounds. ABDOMEN: Normoactive bowel sounds. No tenderness. No organomegaly. No masses. EXTREMITIES: No cyanosis. No clubbing. Bilateral lower extremity edema, right more than left with some redness. CENTRAL NERVOUS SYSTEM: Alert, awake, and oriented x3. No neurological deficit could be appreciated. ASSESSMENT: 1. Bilateral lower extremity edema, right more than left likely secondary to side effect from amlodipine. 2. Status post right total tip replacement. 3. Hypertension. 4. Osteoarthritis. PLAN: We will do venous Doppler. Discontinue amlodipine. Order Lasix. Denise Dean MD
[2017-08-17 08:17] VITALS: BP 125/78; PULSE 63; TEMP 97; O2SAT 99
[2017-08-17] MEDS: Pantoprazole 40 mg EC Tab PO SCH (09:46)
[2017-08-17] MEDS: oxyCODONE 20 mg ER Tab (oxyCONTIN) PO SCH (09:49)
--- NOTE | 2017-08-18 15:29 | DS ---
REASON FOR ADMISSION: This is a 57 years old male with history of right total hip replacement, was admitted to Transitional Care Unit for physical therapy. COURSE OF HOSPITALIZATION: The patient was cooperative for physical therapy and occupational therapy. Patient was being followed by orthopedic surgeon. Patient did well and he was discharged home to continue pain management as well as aspirin 325 mg twice a day as per Orthopedics and to follow up with Orthopedic Surgery as well as with his primary care physician, Dr. Pathak. FINAL DIAGNOSES: Status post right total hip replacement, hypertension, osteoarthritis. [facility] MD Jermaine
== END 2017-08-17 16:45 | disposition home or self-care (01) | DRG 560 ==
LOC: H.TCU 16:11
PROVIDERS: ADMIT Internal Medicine; ATTEND Internal Medicine
PROC: F07L6FZ Therapeutic Exercise Treatment of Musculoskeletal System - Lower Back / Lower Extremity using Assistive, Adaptive, Supportive or Protective Equipment (ICD-10-PCS; principal; 2017-08-04)
PROC: F07Z9FZ Gait Training/Functional Ambulation Treatment using Assistive, Adaptive, Supportive or Protective Equipment (ICD-10-PCS; 2017-08-04)
PROC: F08Z4FZ Home Management Treatment using Assistive, Adaptive, Supportive or Protective Equipment (ICD-10-PCS; 2017-08-05)
PROC: 3E0234Z Introduction of Serum, Toxoid and Vaccine into Muscle, Percutaneous Approach (ICD-10-PCS; 2017-08-05)
DX: Z47.1 Aftercare following joint replacement surgery (principal); L03.115 Cellulitis of right lower limb; Z96.641 Presence of right artificial hip joint; R26.2 Difficulty in walking, not elsewhere classified; M16.11 Unilateral primary osteoarthritis, right hip; I10 Essential (primary) hypertension; D86.0 Sarcoidosis of lung; E78.00 Pure hypercholesterolemia, unspecified; K21.9 Gastro-esophageal reflux disease without esophagitis; R10.84 Generalized abdominal pain; Z23 Encounter for immunization; Z87.891 Personal history of nicotine dependence